=== PATIENT | male | born 1965 | race Caucasian/White ===

== ENCOUNTER 2018-02-09 22:21 | Inpatient (IN) | payer OTHER ==
--- NOTE | 2018-02-09 22:28 | EDPHY ---
H & P Time Seen by Provider: 02/09/18 22:28 HPI/ROS: HPI CHIEF COMPLAINT: Right foot pain, swelling HISTORY OF PRESENT ILLNESS: Patient is a 52-year-old male, presents emergency room with right foot pain and swelling and redness. Additionally has had fever since Wednesday. He states T-max a 103 degrees. Patient states that he was in [place] in noticed some swelling and pain to his right foot and right ankle. Over the weekend he had a fever. The pain has gotten worse and swelling gotten worse and noticed redness he flew back from [place] and came to our emergency room. Upon arrival to the emergency room is noted that his right leg is significantly swollen, erythematous, he has diffuse swelling from his foot ankle and lower leg. On the bottom of his right foot there is a deep skin cut as well as a puncture wound with a hold that tracks rather deep. Additionally the right lateral foot is black, necrotic, and and admits high foul smell. When I press on it he does have significant pain there is no crepitus. I cannot extruded hernesto pus. Past Medical History: Patient states he has a history of neuropathy from"tight shoes" Past Surgical History: History right foot surgery but no hardware Social History: Lives locally, denies drugs alcohol tobacco. Family History: Noncontributory ROS REVIEW OF SYSTEMS: A comprehensive 10 point review of systems is otherwise negative aside from elements mentioned in the history of present illness. Exam Constitutional triage nursing summary reviewed, vital signs reviewed, awake/ alert. Eyes normal conjunctivae and sclera, EOMI, PERRLA. HENT normal inspection, atraumatic, moist mucus membranes, no epistaxis, neck supple/ no meningismus, no raccoon eyes. Respiratory clear to auscultation bilaterally, normal breath sounds, no respiratory distress, no wheezing. Cardiovascular rate normal, regular rhythm, no murmur, no edema, distal pulses normal. Gastrointestinal soft, non-tender, no rebound, no guarding, normal bowel sounds, no distension, no pulsatile mass. Genitourinary no CVA tenderness. Musculoskeletal RLE: right leg is significantly swollen, erythematous, he has diffuse swelling from his foot ankle and lower leg. no midline vertebral tenderness, full range of motion, no calf swelling, no tenderness of extremities , no meningismus, good pulses, neurovascularly intact. Skin pink, warm, & dry, no rash, skin atraumatic. Neurologic awake, alert and oriented x 3, AAOx3, moves all 4 extremities equally, motor intact, sensory intact, CN II-XII intact, normal cerebellar, normal vision, normal speech. Psychiatric normal mood/affect. Heme/Lymph/Immune no lymphadenopathy. Differential Diagnosis: Includes but is not limited to in a particular order: Soft tissue infection, osteomyelitis, necrotic gangrenous foot, MRSA infection, strep infection, myositis Medical Decision Making: Plan for this patient IV establishment blood cultures , broad-spectrum antibiotics IV vancomycin IV Zosyn, x-ray right foot, check lactic acid, patient need to be admitted to the hospital. Will most likely need to consult surgery. Re-evaluation: X-ray reviewed of the right foot. Soft tissue swelling noted. No gas. Patient's blood work is reviewed elevated white blood cell count, elevated CRP. 2354: Reviewed x-ray blood work. I consult the hospitalist service for admission for a right significantly infected foot. Wound cultures been sent. Patient has been given broad-spectrum antibiotics IV vancomycin IV Zosyn. IV fluids. Patient is noted to not be hypotensive. He is afebrile here. He is hemodynamically stable. Additionally I consult Podiatry for evaluation of this foot. 1201AM: Spoke with Faye Dejesus, podiatry. Will plan on seeing the patient. Make NPO tonight. Plan for washout tomorrow morning. 1209AM: Spoke with Dr. Yan, will see and consult on patient. Source: Patient Constitutional: Initial Vital Signs Temperature (C) 37.7 C 02/09/18 22:44 Heart Rate 75 02/09/18 22:44 Respiratory Rate 18 02/09/18 22:44 Blood Pressure 112/59 L 02/09/18 22:44 O2 Sat (%) 91 L 02/09/18 22:44 O2 Delivery Mode Room Air Allergies/Adverse Reactions: No Known Allergies Allergy (Unverified 02/09/18 22:43) Home Medications: Medication Instructions Recorded Calcium Carb W/Vit D [Calcium Carb 500 mg PO DAILY 02/10/18 W/Vit D 500/200 (*)] Cyanocobalamin [Vitamin B12 (*)] 1,000 mcg PO DAILY 02/10/18 [place]-3 Fatty Acids [Fish Oil 1000 2,000 mg PO DAILY 02/10/18 mg (*)] Vitamin B Complex [Vitamin B 1 each PO DAILY 02/10/18 Complex (OTC)] Medical Decision Making - Data Points Laboratory Results: Laboratory Results 02/09/18 22:52 02/09/18 22:52 Microbiology Results: MICROBIOLOGY 02/09/18 22:30 Foot - Swab Gram Stain - Final 02/09/18 22:30 Foot - Swab Wound Culture - Preliminary Staphylococcus Aureus Strep Agalactiae Group B 02/09/18 23:18 Blood Blood Culture - Preliminary 02/09/18 22:51 Blood Blood Culture - Preliminary Medications Given: Acetaminophen (Tylenol) 650 mg PO Q4HRS PRN PRN Reason: Pain, Mild/Fever, Can Take PO Stop: 08/09/18 00:14 Last Admin: 02/11/18 18:22 Dose: 650 mg Calcium/Vitamin D (Calcium Carb W/Vit D) 500 mg PO DAILY JESUS Stop: 08/10/18 08:59 Last Admin: 02/11/18 09:29 Dose: 500 mg Sodium Chloride (Ns) 1,000 mls @ 100 mls/hr IV CONT JESUS Stop: 08/09/18 00:14 Last Admin: 02/11/18 19:43 Dose: 1,000 mls Piperacillin/Tazobactam/Dextrose (Zosyn 3.375 Gm (Premix)) 50 mls @ 100 mls/hr IV Q6HRS JESUS PRN Reason: Protocol Stop: 03/12/18 05:59 Last Admin: 02/12/18 00:05 Dose: 50 mls Doxycycline Hyclate 100 mg/ (Sodium Chloride) 260 mls @ 260 mls/hr IV Q12HRS JESUS PRN Reason: Protocol Stop: 03/12/18 10:29 Last Admin: 02/11/18 21:21 Dose: 260 mls Clindamycin Phosphate/Dextrose (Cleocin 600 Mg (Premix)) 50 mls @ 100 mls/hr IV Q8HRS JESUS PRN Reason: Protocol Stop: 03/13/18 14:59 Last Admin: 02/11/18 22:34 Dose: 50 mls Lorazepam (Ativan) 0.5 - 1 mg PO Q8HRS PRN PRN Reason: Anxiety, Able to Take PO Stop: 08/09/18 00:14 Last Admin: 02/11/18 22:29 Dose: 0.5 mg [id number] Ethyl Esters (Fish Oil) 2,000 mg PO DAILY JESUS Stop: 08/10/18 08:59 Last Admin: 02/11/18 09:29 Dose: 2,000 mg Senna/Docusate Sodium (Senokot-S) 1 - 2 tab PO BID JESUS PRN Reason: Protocol Stop: 08/10/18 20:59 Last Admin: 02/11/18 21:21 Dose: 2 tab Vitamin B Complex (Vitamin B12) 1,000 mcg PO DAILY JESUS Stop: 08/10/18 08:59 Last Admin: 02/11/18 09:49 Dose: Not Given Vitamin B Complex (Vitamin B Complex) 1 ea PO DAILY JESUS Stop: 08/10/18 08:59 Last Admin: 02/11/18 09:29 Dose: 1 ea Discontinued Medications Acetaminophen (Tylenol) 650 mg PO ONCE ONE Stop: 02/10/18 17:31 Last Admin: 02/10/18 17:30 Dose: Not Given Bupivacaine HCl (Sensorcaine 0.25% Sdv) Confirm Administered Dose 30 ml .ROUTE .STK-MED ONE Stop: 02/10/18 17:01 Last Admin: 02/10/18 19:37 Dose: 20 ml Cefazolin Sodium (Ancef Syringe) Confirm Administered Dose 1 gm .ROUTE .STK-MED ONE Stop: 02/10/18 17:01 Last Admin: 02/10/18 19:38 Dose: 1 gm Cefazolin Sodium (Ancef Syringe) Confirm Administered Dose 1 gm .ROUTE .STK-MED ONE Stop: 02/10/18 19:08 Last Admin: 02/10/18 19:38 Dose: Not Given Sodium Chloride (Ns) 1,000 mls @ 0 mls/hr IV EDNOW ONE; Wide Open PRN Reason: Protocol Stop: 02/09/18 22:50 Last Admin: 02/09/18 23:17 Dose: 1,000 mls Vancomycin/Sodium Chloride (Vancomycin 1 Gm (Premix)) 250 mls @ 250 mls/hr IV EDNOW ONE PRN Reason: Protocol Stop: 02/09/18 23:49 Last Admin: 02/10/18 00:22 Dose: 250 mls Piperacillin/Tazobactam/Dextrose (Zosyn (Premix)) 100 mls @ 200 mls/hr IV EDNOW ONE PRN Reason: Protocol Stop: 02/09/18 23:19 Last Admin: 02/09/18 23:46 Dose: 100 mls Vancomycin HCl 1.5 gm/ (Dextrose) 250 mls @ 166.667 mls/hr IV Q12H JESUS Stop: 03/12/18 01:29 Last Admin: 02/10/18 08:48 Dose: Not Given Sodium Chloride (Ns) 1,000 mls @ 0 mls/hr IV ONCE ONE PRN Reason: Wide Open Stop: 02/10/18 22:23 Last Admin: 02/10/18 22:36 Dose: 1,000 mls Lidocaine HCl (Lidocaine Hcl 2%) Confirm Administered Dose 100 mg .ROUTE .STK- MED ONE Stop: 02/10/18 17:01 Last Admin: 02/10/18 19:38 Dose: Not Given Point of Care Test Results: Blood Gas/Lactic Acid-Arterial 02/09/18 23:02 POC Blood Source VENOUS Blood Gas/Lactic Acid-Venous 02/09/18 23:02 POC VBG pH 7.46 H (7.31-7.42) POC VBG pCO2 34 mmHg L mmHg (40-44) POC VBG pO2 28 mmHg L mmHg (35-40) POC VBG HCO3 25 mEq/L mEq/L (22-26) POC VBG Total CO2 26 mEq/L mEq/L (21-27) POC VBG Base Excess 1.0 mEq/L mEq/L (-2.5-2.5) POC Mix VBG O2 Sat 54 % L % (65-75) POC Lactic Acid Mihir 0.9 mmol/L mmol/L (0.7-2.1) Departure - Dep[facility]ure Dis[facility] Clinical Impression: Right foot infection Condition: Fair
[2018-02-09] MEDS ORDERED: NS 1,000 ML IV ONE (22:49)
[2018-02-09] MEDS ORDERED: VANCOMYCIN HCL/NORMAL SALINE 250 ML IV ONE (22:50)
[2018-02-09] MEDS ORDERED: PIPERACILLIN/TAZO 4.5 GM/DEX 100 ML IV ONE (22:50)
[2018-02-09 23:06] LABS: PLATELET COUNT 175 10^3/uL (150-400)
[2018-02-09 23:16] LABS: INR 1.13 (0.83-1.16); PROTIME(PATIENT) 14.7 SEC (12.0-15.0)
[2018-02-10] MEDS ORDERED: HYDROCODONE/APAP 5/325 TAB PO PRN (00:15)
[2018-02-10] MEDS ORDERED: LORazepam 0.5 MG TAB PO PRN (00:15)
[2018-02-10] MEDS ORDERED: ONDANSETRON 4 MG/2 ML VIAL IVP PRN (00:15)
[2018-02-10] MEDS ORDERED: VANCOMYCIN 1.5 GM in D5W 250 ML IV SCH ×2 (01:30→12:00)
[2018-02-10] MEDS: NS 1,000 ML IV SCH (01:34)
--- NOTE | 2018-02-10 03:26 | GHP ---
[f rep st] HISTORY AND PHYSICAL DATE OF ADMISSION: 02/09/2018 SOURCE OF DATA: Patient provides history, appears reliable. EMR was reviewed and case discussed with ED provider. CHIEF COMPLAINT: Right foot pain and swelling. HISTORY OF PRESENT ILLNESS: This is a very pleasant 52-year-old gentleman with a past medical history significant for peripheral neuropathy, bilateral feet, who presents to the emergency department today with complaints of several-day history of worsening right foot pain and swelling. The patient reports he has had a history of a cut approximately a month ago, which subsequently healed. He had been in [place] for work and walking around quite extensively. He noted that he had a small cut on his foot and developed a little bit of swelling. He continued to have worsening foot pain and swelling. On his way back home, he did not notice any drainage, but did note some increased pain and swelling, and odor coming from his foot. He also noted that his lateral aspect of his right foot appeared to be black. Patient reports that he developed some subjective fevers, chills, and sweats. He measured a temperature at home of 103 Fahrenheit. He has had this ongoing since Wednesday, now morning, and so presented to the emergency department when continued to feel poorly. The patient has had increasing swelling in his lower leg as well, but no increased pain. The patient without any history of diabetes or hyperglycemia. REVIEW OF SYSTEMS: GENERAL: Positive for fevers, chills, and sweats. SKIN: Swelling, pain, and erythema noted to the right foot. ENT: Patient denies any congestion or sore throat. E?YES: No acute changes in vision or ocular pain. CV: No chest pain or palpitations. RESPIRATORY: No shortness of breath, but reports occasional dry cough. GI: No nausea, vomiting, abdominal pain, or diarrhea. : No dysuria or hematuria. MUSCULOSKELETAL: Patient without any current complaints of pain, joint, or myalgias. NEUROLOGIC: Bilateral foot neuropathy. Otherwise, no headache, numbness, tingling, or focal deficits. PSYCH: Patient denies any anxiety or depression. Remainder of systems negative except as noted above. ALLERGIES: No known drug allergies. HOME MEDICATIONS: None. PAST MEDICAL HISTORY: Bilateral neuropathy in his feet. PAST SURGICAL HISTORY: Patient had a right foot surgery in attempt to alleviate the neuropathy without success. FAMILY HISTORY: Father with hypertension. SOCIAL HISTORY: Patient is , lives with his and family. No tobacco , drugs, or alcohol. CODE STATUS: Full. PHYSICAL EXAMINATION: VITAL SIGNS: Upon arrival to the emergency department, blood pressure 112/59, heart rate is 75, respiratory rate 18, O2 saturation 91% on room air, with temperature of 37.7. Current vital signs 107/63 blood pressure , heart rate 82, respiratory rate 12, O2 saturation is 95% on room air, with temperature 37.2. GENERAL: No acute distress. Very pleasant adult gentleman, who is lying comfortably on bed asleep. He awakens easily to name. HEAD: Normocephalic, atraumatic. EYES: Extraocular muscles are intact. Pupils are equal, round, reactive to light bilaterally and symmetric. No scleral icterus or conjunctival injection. ENT: Mucous membranes appear moist. No oropharyngeal erythema or exudates. Dentition intact. NECK: Supple. Trachea midline. CV: Regular rate and rhythm. No murmurs, rubs, or gallops appreciated. RESPIRATORY: Unlabored breathing. Lungs are clear to auscultation bilaterally. No wheezes, rales, or rhonchi appreciated. ABDOMEN: Positive bowel sounds. Soft, nontender to palpation. No rebound, guarding, or masses appreciated. : No suprapubic tenderness to palpation. No Tuttle catheter in place. EXTREMITIES: Patient with 2+ pedal pulses on the left. Limited pulse evaluation on the right secondary to 2 to 3+ pitting edema. Right foot also with an ulceration and callus formation over the distal metatarsal head. Extensive swelling and erythema without tenderness. Area of necrosis along the lateral aspect of the right foot. The patient's right distal lower leg also with 1+ pitting edema and blanchable erythema without tenderness. No induration or fluctuance is noted. Also, on the plantar surface of patient's right lateral foot over the 5th metatarsal is a fissured crack without any surrounding erythema. NEUROLOGIC: Cranial nerves grossly nonfocal. No facial drooping. Patient with absent sensation to bilateral feet up to the distal lower extremities. PSYCH: Thought process, content, and questions are all appropriate. Patient is awake, alert, and oriented x3. LABORATORY STUDIES: 1. WBC 20.15, H and H are 13.2 and 36.7, MCV of 91.5, platelet count is 175, and neutrophil percent is 86.5% without any bandemia. ESR is 24. PT is 14.7, INR 1.13, PTT is 38.7. 2. VBG: PH is 7.46, pCO2 is 34, pO2 is 28, bicarb 25, base excess 1, lactic acid 1.1, O2 saturation 54%. 3. Sodium is 138, potassium 3.7, chloride 102, CO2 is 24, anion gap 12, BUN 21 , creatinine is 1.1, GFR greater than 60, glucose is 109. Lactic acid 0.9. Calcium is 8.9. CRP is 186. Blood cultures x2 pending. Wound culture also pending. 4. Foot x-ray: Image and report were reviewed myself, showing soft tissue foot swelling on the lateral forefoot with soft tissue lucency representing an ulceration. No direct evidence of osteomyelitis. Well-corticated bone flake at the tip of the lateral malleolus suggests a remote avulsion injury. ASSESSMENT AND PLAN: Pleasant 52-year-old gentleman, who presents with complaints of right foot swelling, erythema. 1. Right foot wound infection and necrosis. Patient with history of peripheral neuropathy, likely contributing. He has a fissured lesion and ulceration on the plantar aspect at the 5th metatarsal head. The patient has been started on vancomycin and Zosyn. He does not meet sepsis criteria at this time. Job Site Supervisor, Dr. Manju Celaya and Infectious Disease were consulted for further assistance with management. MRI has been ordered for the morning for further evaluation for osteomyelitis. The patient has been made n.p.o. in anticipation that he will require washout and debridement in the morning. 2. Right lower extremity edema secondary to infectious process. Patient without any calf tenderness. He does have a recent history of short travel, low suspicion for deep venous thrombosis. Holding anticoagulation preoperatively. Elevate extremity. 3. Leukocytosis secondary to infectious process, as noted above. Patient has been afebrile since arrival to the emergency department. He reports a history of fevers. Lactic acid is within normal limits. Patient receiving IV fluid supplementation. No bolus. 4. Anemia. Chronicity at this time is unknown. Patient without any evidence of active bleeding. Follow up with PCP. 5. Fluid, electrolyte, nutrition. IV fluids overnight for gentle hydration while patient is n.p.o. Electrolyte monitoring and replacement if needed. 6. Prophylaxis. SCD to the left leg. Holding anticoagulation preoperatively. 7. Cor status is full. DISPOSITION: Patient has been admitted to inpatient status on the medical floor in ICU overflow at this time. Anticipate greater than 2-midnight stay, given extensive nature of patient's infection and need for intervention. /[id number]/MODL MTDD
[2018-02-10] MEDS: PIPERACILLIN/TAZO 3.375 GM/DEX 50 ML IV SCH ×4 (06:07→23:33)
[2018-02-10 06:26] LABS: PLATELET COUNT 160 10^3/uL (150-400)
--- NOTE | 2018-02-10 08:27 | GCON ---
[f rep st] CONSULTATION DATE OF CONSULTATION: 02/10/2018 CHIEF COMPLAINT: Right foot pain and swelling. HISTORY OF PRESENT ILLNESS: Podiatry was consulted on this 52-year-old male with a past medical history of peripheral neuropathy without diabetes. He relates that a few months ago, he punctured his foot on coral, and it took a while to resolve but eventually did. On Wednesday, he started feeling ill with fever, chills, and hot sweats. He presented yesterday to the emergency department and was found to have a right foot infection. X-rays done yesterday were negative for osteomyelitis, however, did demonstrate extensive lateral foot swelling. He does also relate that 6 months ago he sprained his ankle and started noticing foot swelling in addition to the ankle swelling last week. The last few days he was in [place], wearing tennis shoes and walking a lot. He thought initially that it was just the shoes causing pain and noticed a cut on the bottom of his foot that he thought was the trigger of the pain. His peripheral neuropathy has been ongoing for 15 years. He relates he thinks this is from extensive cycling. He did have a tarsal tunnel release and a nerve release on the dorsal aspect of his foot approximately 10 years ago. He relates that this was not helpful. He had EMG and nerve conduction studies done approximately 10 years ago as well which were abnormal, but he does not remember the exact results. He does not take any medications for the neuropathy. PAST MEDICAL HISTORY: Neuropathy, bilateral feet. History of tarsal tunnel release and dorsal foot nerve release. HOME MEDICATIONS: None. ALLERGIES: No known drug allergies. FAMILY HISTORY: Father with hypertension. SOCIAL HISTORY: The patient is , lives with his and family. He denies any tobacco, drugs, or alcohol use. REVIEW OF SYSTEMS: Fever and chills and hot sweats. The remainder of the review of systems was negative. He denies any nausea, vomiting, shortness of breath, chest pain, or abdominal pain. VITALS: Blood pressure 107/63, heart rate 82, respiratory rate 12, oxygen saturation 95% on room air, temperature 37.2 degrees Celsius. MICROBIOLOGY: Blood culture is pending. LABORATORIES: White blood cell count 17.45 (it was 20.15 when admitted). Hemoglobin 12.5, hematocrit 34.3, platelets 160. ESR was 24 upon admission. C- reactive protein 186.3. Sodium 139, potassium 3.7, chloride 106, carbon dioxide 23, BUN 15, creatinine 0.9, and glucose 103. IMAGING: X-ray demonstrates "lateral forefoot soft tissue edema. Soft tissue lucency could represent focal ulceration, correlate with direct examination. No direct evidence of osteomyelitis." LOWER EXTREMITY PHYSICAL EXAMINATION: Right foot with significant soft tissue swelling over the 5th metatarsal head and fluctuant area consistent with an abscess with hyperkeratotic ulcer under the 5th metatarsal head. There is surrounding erythema and cellulitis with extensive swelling. The plantar aspect of the 5th metatarsal head has a fissure proximal to the 5th metatarsal head ulcer, which does not appear to be contributing to the wound. He has 2+ pedal pulses. He does not have any sensation distal to the ankle with light touch. ASSESSMENT AND PLAN: Right foot infection with necrosis and peripheral neuropathy. Currently on Zosyn and Vancomycin. We discussed surgical intervention and the need for incision and drainage. I would like him to get the MRI done prior for surgical planning. We will plan for incision and drainage later this afternoon/evening. Spoke with the OR and they were able to schedule the patient for 5 o'clock this evening. Infectious Disease was consulted on the patient. Discussed work up of the peripheral neuropathy as an outpatient to determine etiology and treatment options. /[id number]/MODL MTDJessica
--- NOTE | 2018-02-10 10:33 | PDMN ---
Medical Necessity Medical necessity: Pt meets IP criteria per MD & MCG [id number] Foot: Surgical Wound Care with R foot wound infection, necrosis, RLE edema & leukocytosis; requiring MRI to further workup for osteomyelitis, Surgical intervention, IVFs, IV abx & ID/Wound Care consults; hx peripheral neuropathy
--- NOTE | 2018-02-10 11:03 | GCON ---
[f rep st] CONSULTATION INFECTIOUS DISEASE CONSULTATION REFERRING PHYSICIAN: Manju Celaya DPM REASON FOR CONSULTATION: Right foot infection. HISTORY OF PRESENT ILLNESS: This is a 52-year-old healthy male with underlying peripheral neuropathy of his bilateral feet who was in his usual state of health until February 06 when he developed flu-like illness. Patient subsequently felt better; therefore, traveled to [place] for a meeting where he developed a crack in the bottom of his foot underlying his 5th metatarsal. He reported some pain with this and noted some mild foot swelling over this duration. The patient had chills return on the and while he was traveling and returned yesterday and presented to the emergency room for further evaluation. Interestingly 3 months ago, patient injured his foot while in [facility] on some coral. He did not take antibiotics and reports that this healed. Over the last 24 hours prior to admission, patient noticed marked increase in swelling, a foul smell coming from his foot, and subsequently, they noticed the black discoloration, which prompted the ER visit. In addition, he sprained his ankle 6 months ago and has had some discomfort associated with the ankle with that as well. Denies any other injuries. He has some mild persistent pain of the foot and describes continued progression of the appearance of the swelling and the redness of the foot. PAST MEDICAL/SURGICAL HISTORY: Neuropathy bilateral feet. Patient had a nerve release on the right foot with minimal success. MEDICATIONS: None. ALLERGIES: No known drug allergies. FAMILY HISTORY: Positive for high blood. SOCIAL HISTORY: He is over 20 years. He has children who are teenagers. No tobacco. Rare alcohol. No drugs. He is originally from [place]. He works for a [employer] and travels a lot for that, and has been to the [place] twice this year. REVIEW OF SYSTEMS: A complete 10-point review of systems was performed and is negative, except as mentioned in the HPI. Specifically, patient denies pulmonary or GI symptoms. Further patient has not received antibiotics for many years. PHYSICAL EXAMINATION: VITAL SIGNS: BP 112/59, HR 75, RR 16, T 37.7, and saturation 91% on room air. Weight is 100 kg. GENERAL: This is a pleasant male who appears younger than his stated age. Breathing easy. HEENT: No conjunctival injection. Oropharynx: Moist mucous membranes and good dentition. CARDIOVASCULAR: Regular rate and rhythm with an S3. CHEST: Clear to auscultation bilaterally. ABDOMEN: Soft, nontender. EXTREMITIES: His right lower extremity revealed significant edema of his right foot, particularly focused over the right metatarsal and along the base of all of his toes is the distribution of erythema. Further, patient has a hemorrhagic necrotic appearing bulla on his right lateral foot. He has 2+ pedal pulses. There is faint erythema tracking up to his mid schwarz, as well as swelling, warmth , lack of tenderness to palpation. No crepitus was noted. There was some drainage over the 5th metatarsal on the sole of his foot. Range of motion of the toes seemed roughly intact, as well as his ankle. SKIN: No rashes other than noted on extremity exam. NEUROLOGIC: He is alert oriented x4. Moving all 4 extremities equally. I did not do a sensory exam. LABORATORY/IMAGING: White count 20, on admission, 17 today, hematocrit 34, platelets 160, 83% neutrophils. Gram stain from the wound showed 3+ gram- negative coccobacilli, 2+ gram-positive cocci, 1+ gram-negative rods with rare gram-positive rods. Blood cultures are pending and no growth to date. Creatinine 0.9. CRP 186. MRI is pending. Plain film imaging was unremarkable for anything other than swelling. ASSESSMENT/PLAN: 52-year-old male with right foot cellulitis with a component of necrosis. Suspect streptococcus or staphylococcus as most likely pathogen. Fairly rapidly progressive, although patient with initial flu-like illness 4 days ago, and due to lack of sensation in his feet, may have not recognized the presence of infection. Interestingly, patient does have some remote water exposure, raising the possibility of more unusual pathogens causing cellulitis. Specifically, Vibrio, Edwardsiella, Aeromonas, Erysipelothrix. I think his risk of methicillin-resistant Staphylococcus aureus is low due to minimal antibiotic exposure. Would discontinue vancomycin and replace with doxycycline , which would add Aeromonas and Vibrio coverage, but also continue coverage for methicillin-resistant Staphylococcus aureus. Continue standard dose Zosyn IV for now. Patient to have MRI today and to have surgical debridement this afternoon by Dr. Manju Celaya, which I am in agreement with and will get additional microbiologic data and anatomic data by both of those modalities. I will continue to follow blood cultures. Thank you for this consultation. We will continue to follow on a daily basis. /[id number]/MODL MTDD
[2018-02-10] MEDS: DOXYCYCLINE INJ 100 MG in NS 250 ML IV SCH ×2 (11:27→21:45)
[2018-02-10] MEDS ORDERED: GADOBUTROL 10 ML VIAL IVP ONE (14:29)
--- NOTE | 2018-02-10 15:59 | ASMTCASEMG ---
Living Arrangements What is your living Answers: With Spouse arrangement? Who do you live with? Type Of Residence What kind of residence do Answers: House you live in? Discharge Plan Comments Coordination Status Comments Notes: Patient is a 52yo male who was admitted for right foot wound infection and necrosis, right lower extremity edema secondary to infection, leukocytosis, and anemia. No therapies have been ordered at this time. D/C plan TBD. CM will follow. Date Signed: 02/10/2018 03:58 PM Electronically Signed By:Ailin Bettencourt LCSW
[2018-02-10] MEDS ORDERED: ceFAZolin 1 GM/5 ML SYR ONE ×2 (17:00→19:07)
[2018-02-10] MEDS ORDERED: BUPIVACAINE 0.25% 30 ML SDV ONE (17:00)
[2018-02-10] MEDS ORDERED: LIDOCAINE 2% 100 MG/5 ML SYR ONE (17:00)
[2018-02-10] MEDS ORDERED: ACETAMINOPHEN 325 MG TAB PO ONE (17:30)
--- NOTE | 2018-02-10 17:42 | PDANEPAE ---
ANE Past Medical History - Pulmonary History Hx Oxygen in Use at Home: No Hx Sleep Apnea: No Sleep Apnea Screening Result - Last Documented: Positive - Endocrine History Hx Diabetes: No - Chronic Pain History Chronic Pain: No ANE Review of Systems Review of Systems: ANE Patient History - Allergies Allergies/Adverse Reactions: No Known Allergies Allergy (Unverified 02/09/18 22:43) - Home Medications Home Medications: Calcium Carb W/Vit D [Calcium Carb W/Vit D 500/200 (*)] 500 mg PO DAILY [Last Taken Unknown] Cyanocobalamin [Vitamin B12 (*)] 1,000 mcg PO DAILY 02/10/18 [Last Taken Unknown ] [place]-3 Fatty Acids [Fish Oil 1000 mg (*)] 2,000 mg PO DAILY 02/10/18 [Last Taken Unknown] Vitamin B Complex [Vitamin B Complex (OTC)] 1 each PO DAILY 02/10/18 [Last Taken Unknown] - NPO status NPO Since - Liquids (Date): 02/10/18 NPO Since - Liquids (Time): 09:00 NPO Since - Solids (Date): 02/10/18 NPO Since - Solids (Time): 09:00 - Smoking Hx Smoking Status: Never smoked ANE Labs/Vital Signs - Labs Result Diagrams: 02/10/18 06:00 02/10/18 06:00 - Vital Signs Blood Pressure: 102/59 Heart Rate: 98 Respiratory Rate: 16 O2 Sat (%): 93 Height: 187.96 cm Weight: 100 kg ANE Physical Exam - Airway Mallampati Score: Class 1 - ASA Status ASA Status: II ANE Anesthesia Plan Anesthesia Plan: GA w LMA, MAC
[2018-02-10] MEDS ORDERED: fentaNYL 100 MCG/2 ML INJ ONE (17:50)
[2018-02-10] MEDS ORDERED: MIDAZOLAM 2 MG/2 ML VIAL ONE (17:50)
[2018-02-10] MEDS ORDERED: PROPOFOL 200 MG/20 ML VIAL ONE (18:22)
[2018-02-10] MEDS ORDERED: METOCLOPRAMIDE 10 MG/2 ML VIAL ONE (18:22)
[2018-02-10] MEDS ORDERED: LIDOCAINE 2% JELLY 5 ML TUBE ONE (18:22)
[2018-02-10] MEDS ORDERED: ONDANSETRON 4 MG/2 ML VIAL ONE (18:23)
[2018-02-10] MEDS ORDERED: PHENYLEPHRINE HCL 100 MCG/ML SYR ONE (18:32)
[2018-02-10] MEDS ORDERED: KETOROLAC 30 MG/1 ML SDV ONE (19:21)
[2018-02-10] MEDS ORDERED: fentaNYL 100 MCG/2 ML INJ IVP PRN (19:39)
[2018-02-10] MEDS ORDERED: NALOXONE HCL 0.4 MG/ML INJ IVP PRN (19:39)
[2018-02-10] MEDS ORDERED: PHENYLEPHRINE HCL 100 MCG/ML SYR IVP PRN (19:39)
[2018-02-10] MEDS ORDERED: NS 500 ML IV PRN (19:39)
--- NOTE | 2018-02-10 19:40 | HOSPPROG ---
Hospitalist Progress Note Assessment/Plan: Assessment: 52 yo M p/w acute ft abscess and cellulitis in the setting of neuropathy Plan: 1. Ft abscess and cellulitis. Acute, new problem this provider, further workup indicated. Located on the plantar surface of the right foot with skin break, traveling proximally and potentially resulting in necrotizing fasciitis per my discussion with Dr. Ludin Benítez, based on MRI results -a personally interpreted the patient's foot x-ray there is possibly a soft tissue lucency in the right, the patient does recently have a history of stepping on coral, it will be determined in the OR whether he has an imbedded foreign object -Dr. Benítez has relayed this information to Dr. Celaya who is taking the patient to the operating room tonight -cultures will be sent from the area, will guide antibiotic therapy -infectious Disease consultation appreciated, currently on Vanco and Zosyn, continue perioperatively -no evidence of overt osteomyelitis -will require localized wound care and physical therapy -pain control 2. Tendinopathy. MRI demonstrating partial tear of the right peroneal tendon -will recommend ongoing outpatient physical therapy as well as orthopedic follow -up 3. Neuropathy. Chronic, unclear etiology, will check hemoglobin A1c 4. Systemic inflammatory response syndrome. Secondary to underlying infection, patient does not overtly meet sepsis criteria, continue monitor white blood cell count and fever curve Diet. Regular Prophylaxis. High risk patient, avoid SCDs on right lower extremity, hold on pharmacologic prophylaxis given surgery Code. Full Disposition. Anticipated discharge uncertain this time, anticipated length stay will be based on IV antibiotic duration as well as wound reassessment Subjective: Right foot pain Objective: Vital Signs Temp Pulse Resp BP Pulse Ox 38.1 C 98 16 102/59 L 93 02/10/18 18:31 02/10/18 18:31 02/10/18 18:31 02/10/18 18:31 02/10/18 18:31 Laboratory Results 02/10/18 06:00 02/10/18 06:00 02/09/18 02/10/18 02/11/18 05:59 05:59 05:59 Intake Total 1875 Balance 1875 PT 14.7 SEC (12.0-15.0) 02/09/18 22:52 INR 1.13 (0.83-1.16) 02/09/18 22:52 - Physical Exam Constitutional: no apparent distress, appears nourished, not in pain, No uncomfortable Cardiovascular: regular rate and rhythym, no murmur, rub, or gallop, edema (1+ right lower extremity) Respiratory: no respiratory distress, no rales or rhonchi, clear to auscultation Gastrointestinal: normoactive bowel sounds, soft, non-tender abdomen, no palpable masses Skin: other (Ruptured blood blister over the lateral aspect of the right foot, with underlying dark in blood, bloody granulation tissue, tense ecchymoses surrounding area with tenderness to palpation, confluent blanching erythema extending proximally, longitudinal skin break along the plantar aspect of the foot) Musculoskeletal: other (Full range of motion of right ankle without any overt pain, full range of motion of his toes without particular pain) Neurologic: AAOx3, No sensation intact bilaterally (Paresthesias along the plantar aspect of the right foot, intact sensation proximal to the ankle) Psychiatric: interacting appropriately, not anxious, not encephalopathic, thought process linear ICD10 Worksheet Patient Problems: Problems Problem Status Onset Right foot infection Acute
--- NOTE | 2018-02-10 19:41 | POSTOPPROG ---
Post Op Note Date of Operation: 02/10/18 Surgeon: Manju Celaya Anesthesiologist: Dr. Chiquita Ortega Anesthesia: LMA Pre-op Diagnosis: Right foot infection with necrosis Post-op Diagnosis: Right foot infection with necrosis Procedure: Right foot incision and drainage with extensive debridement Inf/Abcess present in the surg proc area at time of surgery?: Yes Depth: Deep Incisional (Fascial) EBL: Minimal Drains: Other (Iodoform packing gauze.)
--- NOTE | 2018-02-10 19:41 | POSTANESTH ---
Post Anesthetic Evaluation Cardiovascular Status: Similar to Pre-Op Cond Respiratory Status: Normal, Stable Level of Consciousness/Mental Status: Can Participate in Eval Pain Control: Adequate, Prn Tx Ordered Nausea/Vomiting Control: Adequate, Prn Tx Ordered Complications Possibly Related to Anesthesia: None Noted
--- NOTE | 2018-02-10 20:21 | GOP ---
[f rep st] OPERATIVE REPORT DATE OF OPERATION: SURGEON: Manju Celaya DPM ANESTHESIA: LMA. ANESTHESIOLOGIST: Mart Ortega MD PREOPERATIVE DIAGNOSIS: Right foot infection with necrosis over 5th metatarsal head. POSTOPERATIVE DIAGNOSIS: Right foot infection with necrosis over 5th metatarsal head. PROCEDURE PERFORMED: Right foot incision and drainage with extensive soft tissue debridement over the 5th metatarsal and 5th toe. FINDINGS: Tissue necrosis about the 5th metatarsal and plantar forefoot under the 5th and 4th metatarsals. SPECIMENS: Wound cultures and tissue were sent for micro. ESTIMATED BLOOD LOSS: Minimal. DESCRIPTION OF PROCEDURE: Under mild sedation, the patient was brought into the operating room, placed on the operating table in supine position. LMA anesthesia was then performed by Dr. Ortega. Local anesthesia was obtained using 20 mL of 0.25% Marcaine plain. The foot and leg were then scrubbed, prepped, and draped in the usual aseptic manner. A sterile pneumatic ankle tourniquet was placed about the ankle. No exsanguination was performed. After mild elevation of the foot, the tourniquet was inflated. An incision was then made over the 5th metatarsal head at the area of necrosis and extended plantarly underneath the 4th and 5th metatarsal heads. The incision was used to encompass the plantar ulcer and all of the black necrotic areas were removed with sharp and blunt dissection. This was carried down to the level of the 5th metatarsal capsule tendons and periosteum. Extensive debridement was performed by removing all of the brown necrotic tissue. This did leave the 5th metatarsal exposed with the overlying capsule and tendons intact. Extensive irrigation was performed initially with bulb syringe and then pulse lavage was performed. There was tunneling noted plantarly, as well as distally underneath the 4th and 5th intermetatarsal space. Pulse lavage was then performed using a 3 L bag of fluid with Ancef in the irrigation. The instrumentation was changed and so were gloves at this point. The wound was packed with iodoform packing gauze. The open wound measured approximately 6 cm from the top of the foot around to the bottom of the foot and approximately 5.5 cm dorsal aspect of the foot from proximal to distal and 4 cm from the plantar aspect. Iodoform packing gauze, 4 x 4 gauze, ABD pad, Erin, Kerlix, Rush wrap were applied. The tourniquet was deflated at 36 minutes. The patient was then transferred to the recovery room. Patient will be transferred back to ICU. Plan for wound care to see the patient in the morning. I am concerned about the lack of viable soft tissue coverage over the 5th metatarsal. He is at high risk for losing the 5th ray, including the 5th toe and 5th metatarsal. INJECTABLES: Proximal ankle block using 20 mL of 0.25% Marcaine plain. DRAINS: Iodoform packing gauze placed. HEMOSTASIS: Pneumatic ankle tourniquet at 225 mmHg for 36 minutes. /[id number]/MODL MTDD
[2018-02-10] MEDS ORDERED: NS 1,000 ML IV ONE (22:22)
--- NOTE | 2018-02-10 22:30 | CPEKG ---
Heart Rate: 110 RR Interval: 545 QRSD Interval: 90 QT Interval: 340 QTC Interval: 461 QRS [place]: 54 T Wave [place]: 5 EKG Severity - ABNORMAL ECG - EKG Impression: ATRIAL FIBRILLATION, V-RATE 77-144 EKG Impression: VENTRICULAR PREMATURE COMPLEX EKG Impression: BORDERLINE R WAVE PROGRESSION, ANTERIOR LEADS Electronically Signed By: Enrrique Wadsworth 11-Feb-2018 17:14:24
[2018-02-11 05:13] LABS: PLATELET COUNT 164 10^3/uL (150-400)
[2018-02-11] MEDS: PIPERACILLIN/TAZO 3.375 GM/DEX 50 ML IV SCH ×3 (06:41→17:42)
--- NOTE | 2018-02-11 09:04 | PCMIDPN ---
Assessment/Plan: # Severe cellulitis R foot with areas of necrosis s/p debridement 01/10. Initial cultures showing MSSA and group B strep. OR Gram stain showed 2+ GPCs and 2+ gram-negative rods. Still with a significant amount of dusky tissue on the edge of the wound, no hernesto purulence. Erythema on the dorsum of the foot is more lolis and petechial in nature, involving the majority of the dorsum. Intact circulation, erythema on the anterior schwarz is improved. White count has trended down. --with gram-negative rods on the Gram stain and history of coral injury and infection emanating from this site will continue doxycycline (coverage vibrio, Aeromonas) --will leave Zosyn for now due to presence of GNR, will provide coverage of MSSA and GBS --agree with return to OR tomorrow for further debridement and amp of R 5th toe and met due to ongoing appearance of tissue Meds zosyn 3.375gm IV q6 Doxycycline 100mg IV q12h Microbiology 02/09/18 22:51 Blood Cx(2) NGTD 02/09/18 22:30 Foot - Swab Wound Culture : Staphylococcus Aureus Strep Agalactiae Group B 02/10/18 OR cx : 2+ GPCs and 2+ gram-negative rods; Cx pending Subjective: Reviewed surgical findings with Dr. Manju Celaya and infection emanated from puncture wound from Coral injury. Patient has no foot pain due to underlying neuropathy. He expresses concern regarding losing his entire foot. Objective: Vital Signs Temp Pulse Resp BP Pulse Ox 37.8 C 95 22 H 116/74 94 02/11/18 08:00 02/11/18 08:00 02/11/18 08:00 02/11/18 08:00 02/11/18 08:00 Microbiology 02/10/18 19:16 Gram Stain - Final Foot - Tissue 02/10/18 19:15 Gram Stain - Final Foot - Eswab 02/10/18 19:15 Mycobacterial Smear (JAVI) - Final Foot - Eswab Mycobacterial Culture - Final Laboratory Results 02/11/18 05:00 02/11/18 05:00 02/10/18 02/11/18 02/12/18 05:59 05:59 05:59 Intake Total 1875 4140 Output Total 301 300 Balance 1875 3839 -300 ESR 24 MM/HR (0-20) H 02/09/18 22:52 C-Reactive Protein 186.3 mg/L (<10.0) H 02/09/18 22:52 - Physical Exam General Appearance: alert, no apparent distress Respiratory: lungs clear, No accessory muscle use Cardiac/Chest: regular rate, rhythm Extremities: swelling (swelling of R foot significantly improved), erythema ( erythema on anterior schwarz faded), other (dusky tissue on the edge of the wound, no hernesto purulence. Erythema on the dorsum of the foot is more lolis and petechial, very large open wound lateral R foot) Peripheral Pulses: 2+: dorsalis-pedis (R), dorsalis-pedis (L) Skin: warm/dry, No diaphoresis, No pallor, No rash Neuro/Psych: alert, normal mood/affect, oriented x 3 - Time Spent With Patient Time Spent with Patient: greater than 35 minutes Time Spent with Patient: Greater than 35 minutes spent on this patients care, greater than 50% of time spent counseling, educating, and coordinating care regarding the above mentioned plan. ICD10 Worksheet Patient Problems: Problems Problem Status Onset Right foot infection Acute
[2018-02-11] MEDS: VITAMIN B COMPLEX 1 EA CAP/TAB PO SCH (09:29)
[2018-02-11] MEDS: CALCIUM CARB W/VIT D 500 MG TAB PO SCH (09:29)
[2018-02-11] MEDS: OMEGA-3 FATTY ACIDS 1,000 MG CAP PO SCH (09:29)
[2018-02-11] MEDS: DOXYCYCLINE INJ 100 MG in NS 250 ML IV SCH ×2 (09:30→21:21)
[2018-02-11] MEDS: CYANO/VITAMIN B12 1000 MCG TAB PO SCH (09:49)
--- NOTE | 2018-02-11 11:46 | SOAPPROG ---
SOAP Progress Note Assessment/Plan: Assessment:Right foot infection. 1 day s/p incision and drainage Plan:The wound was evaluated with Dr. Yan and Larisa with wound care. Wound edges not as healthy as last night right after debridement. Further necrosis is developing at the skin edges with necrosis forming over the 5th metatarsal. Discussed with patient that he will require further debridement, but I would like to wait for further demarcation. He will require a 5th ray amputation. This was discussed with the patient and his (over the phone). Will keep the patient NPO after midnight for possible amputation tomorrow morning. Patient currently on Doxycycline and Zosyn per ID. 02/11/18 12:01 Subjective: The patient was seen at bedside, 1 day s/p right foot incision and drainage with debridement of necrosis. He states feeling exhausted, but feeling better overall. Right foot elevated on pillows. Dressing clean, dry, and intact Objective: Vital Signs Temp Pulse Resp BP Pulse Ox 37.8 C 95 22 H 116/74 94 02/11/18 08:00 02/11/18 08:00 02/11/18 08:00 02/11/18 08:00 02/11/18 08:00 Microbiology 02/10/18 19:16 Gram Stain - Final Foot - Tissue 02/10/18 19:15 Gram Stain - Final Foot - Eswab 02/10/18 19:15 Mycobacterial Smear (JAVI) - Final Foot - Eswab Mycobacterial Culture - Final Laboratory Results 02/11/18 05:00 02/11/18 05:00 02/10/18 02/11/18 02/12/18 05:59 05:59 05:59 Intake Total 1875 4140 Output Total 301 300 Balance 1875 3839 -300 PT 14.7 SEC (12.0-15.0) 02/09/18 22:52 INR 1.13 (0.83-1.16) 02/09/18 22:52 - Time Spent With Patient Time Spent With Patient: 30 minutes - Pending Discharge Pending Discharge Within 24 Hours: No Pending Discharge Within 48 Hours: No Physical Exam - Physical Exam General Appearance: alert, no apparent distress Peripheral Pulses: 2+: dorsalis-pedis (R) Skin: other (Right foot cellulitis with red/purple discoloration. Open wound over 5th metatarsal with 5th metatarsal visible. Wound approximately 6 cm x 4 cm. Wound edges with worsening necrosis since debridement last night. ) Extremities: normal capillary refill, swelling Neuro/Psych: alert, normal mood/affect ICD10 Worksheet Patient Problems: Problems Problem Status Onset Right foot infection Acute
--- NOTE | 2018-02-11 12:10 | ECHO ---
[email or web address] [address] Main: [phone] Fax: [email or web address] Echocardiogram Name: MARRY MEZA MR#: [id number] Study Date: 02/11/2018 Study Time: 08:02 AM Date of : 1965 Age: 52 year(s) Height: 188 cm (74 in.) Weight: 99.79 kg (220 lb.) BSA: 2.26 m2 Gender: Male Examination: Echo Indication: New onset of atrial fibrillation post surgery, now NSR with ectopy Image Quality: Contrast: Requested by: Elisabeth Zhang BP: 114 mmHg/60 mmHg Heart Rate: Rhythm: Normal sinus rhythm with ectopy Indication: New onset of atrial fibrillation post surgery, now NSR with ectopy Procedure Staff Armored Service Technician: Jamir Ellsworth RDCS Reading Physician: Axel Martin MD Requesting Provider: Conclusions: Normal size left ventricle. No LV hypertrophy. Normal global systolic LV function. EF is 66 %. No regional wall motion abnormality. Normal diastolic LV function. Normal size right ventricle. Normal RV function. The left atrium is normal in size. The right atrium is normal in size. The mitral valve is normal in appearance and function. There is no mitral valve regurgitation. The aortic valve is normal in appearance and function. The aortic valve is tri-leaflet. The tricuspid valve appears normal. Trivial tricuspid valve regurgitation. The pulmonary artery pressure is normal. The pulmonic valve is normal in appearance and function. The aorta is normal. No pericardial effusion. The patient's heart appears to be structurally normal. A cause for the patient's atrial fibrillation is not identified on this study. Measurements: Chambers Valvular Assessment AV/MV Valvular Assessment TV/PV Normal Normal Normal Name Value Range Name Value Range Name Value Range TR Vmax: 2.24 mm/s ( - ) Patient: MARRY MEZA Study Date: 02/11/2018 Page 1 of 2 08:02 AM Ao Isa (MM): 2.9 cm (2.2 cm-3.7 AV Vmax: 1.48 m/s (1 m/s-1.7 TR PGmax: 20 mmHg ( - ) cm) m/s) syst. PAP: 25 mmHg ( - ) IVSd (2D): 0.9 cm (0.6 cm-1.1 AV maxP mmHg ( - ) PV Vmax: 1.15 m/s (0.6 m/s-0.9 cm) LVOT Vmax: 0.99 m/s (0.7 m/s-1.1 m/s) LVDd (2D): 4.6 cm (4.2 cm-5.9 m/s) PV PGmax: 5 mmHg ( - ) cm) MV E Vmax: 1.00 m/s ( - ) LVDs (2D): 3.0 cm (2.1 cm-4 MV A Vmax: 0.78 m/s ( - ) cm) MV E/A: 1.28 ( - ) LVPWd (2D): 1.1 cm (0.6 cm-1 cm) LVEF (2D): 66 (>=54 %) Continued Measurements: Chambers Valvular Assessment AV/MV Valvular Assessment TV/PV Name Value Name Value Name Value LADs Lon.4 cm MV E/E' Septal: 9.90 CVP (est.): 5 mmHg LA Area: 20.3 cm2 MV E/E' Lateral: 10.30 LA Volume: 57 ml LA Volume Index: 25.2 ml/m2 Findings: Left Ventricle: Normal size left ventricle. No LV hypertrophy. Normal global systolic LV function. EF is 66 %. No regional wall motion abnormality. Normal diastolic LV function. Right Ventricle: Normal size right ventricle. Normal RV function. Left Atrium: The left atrium is normal in size. Right Atrium: The right atrium is normal in size. Mitral Valve: The mitral valve is normal in appearance and function. There is no mitral valve regurgitation. Aortic Valve: The aortic valve is normal in appearance and function. The aortic valve is tri-leaflet. Tricuspid Valve: The tricuspid valve appears normal. Trivial tricuspid valve regurgitation. The pulmonary artery pressure is normal. Pulmonic Valve: The pulmonic valve is normal in appearance and function. Aorta: The aorta is normal. Pericardium: No pericardial effusion. (No Signature Object) Patient: MARRY MEZA Study Date: 02/11/2018 Page 2 of 2 08:02 AM [id number]
--- NOTE | 2018-02-11 12:38 | ASMTCMCOM ---
CM Note CM Note Notes: Patient went for right foot incision and drainage with extensive debridement. PT and wound care have been ordered. D/C plan still TBD. CM will follow. Date Signed: 02/11/2018 12:37 PM Electronically Signed By:Ailin Bettencourt LCSW
[2018-02-11] MEDS: ACETAMINOPHEN 325 MG TAB PO PRN ×2 (12:39→18:22)
--- NOTE | 2018-02-11 14:16 | WOCRNPDOC ---
JOSÉ MIGUEL Advanced Assessment Note - Skin Integrity Problem, Advanced Assess Right Foot Dressing Type: Abdominal Pads, Rush Bandage, Gauze, Iodoform Packing, Kerlix Dressing Description: Intact, Shadowed Exudate Amount: Minimal Exudate Color: Red Exudate Characteristic(s): Bloody Integumentary Issue Intervention: Dressing Changed Ivory Wound Tissue: Erythema, Hot, Swollen, Intact Ivory Wound Swelling: Mild Wound Bed Color: Red, Yellow Wound Bed Constitution: Smooth Tissue, Red/[place] - Non Granular Tissue, Tunneling (2 o'clock: 1cm; 8-10 o'clock: 1cm), Tendon, Muscle, Subcutaneous Fat Wound Edges: Attached, Not Attached, Irregular Site Measurement - Head-to-Toe Length X Width X Depth (cm): 5x7x1, spanning dorsal to plantar surface Skin Integrity Problem Comment: Wound unpacked and Dr. Celaya at bedside. Circumferentially, ivory wound tissue dusky appearing, concern expressed for further need for debridement. Wound cleaned with NS and gauze. Tunnels and wound bed packed fully but not tightly with with packing, covered with gauze and an ABD and wrapped in kerlix and an rush. Patient tolerated the procedure well. All questions answered. No wound orders placed as Dr. Celaya to round again tomorrow to change. Wound care will round again on Wednesday.
[2018-02-11] MEDS: CLINDAMYCIN 600 MG/DEXTROSE 50 ML IV SCH ×2 (15:18→22:34)
--- NOTE | 2018-02-11 17:43 | HOSPPROG ---
Hospitalist Progress Note Assessment/Plan: Assessment: 52 yo M p/w acute ft abscess and cellulitis in the setting of neuropathy c/b Afib w/ acute RVR Plan: 1. Foot abscess and cellulitis. Acute, POD#1 from extensive debridement or the 4th/5th digits w/ complete removal of tissue over the 5th digit and requiring re -debridement and 5th digit amputation / by Dr. Celaya -D#2 Doxy/Zosyn -Cx w/ Staph and GBS -appreciate ongoing ID consult -counseled patient that RLE edema likely extension of infxn cellulitis rather than ankle tendon injury 2. Tendinopathy. MRI demonstrating partial tear of the right peroneal tendon, d /w patient -will recommend ongoing outpatient physical therapy as well as orthopedic follow -up 3. Neuropathy. Chronic, unclear etiology, A1c pending 4. Systemic inflammatory response syndrome. Secondary to underlying infection, patient does not overtly meet sepsis criteria, continue monitor white blood cell count and fever curve 5. Atrial fibrillation. Acute RVR o/n, likely provoked by infection, converted back to NSR -monitor on tele -Echo w/ EF 66%, no abnl -hold on any luli blocking agents, likely spurious -hold on cva ppx unless reoccurs Diet. Regular Prophylaxis. High risk patient, avoid SCDs on right lower extremity, hold on pharmacologic prophylaxis given surgery Code. Full Disposition. Anticipated discharge uncertain this time, anticipated length stay will be based on IV antibiotic duration as well as wound reassessment Subjective: Afib RVR o/n, ongoing pain in R lateral foot Objective: Vital Signs Temp Pulse Resp BP Pulse Ox 37.8 C 95 22 H 116/74 92 02/11/18 08:00 02/11/18 08:00 02/11/18 08:00 02/11/18 08:00 02/11/18 13:55 Microbiology 02/10/18 19:15 Gram Stain - Final Foot - Eswab 02/10/18 19:15 Mycobacterial Smear (JAVI) - Final Foot - Eswab Mycobacterial Culture - Final 02/10/18 19:16 Gram Stain - Final Foot - Tissue 02/10/18 19:16 Mycobacterial Smear (JAVI) - Final Foot - Tissue Laboratory Results 02/11/18 05:00 02/11/18 05:00 02/10/18 02/11/18 02/12/18 05:59 05:59 05:59 Intake Total 1875 4140 Output Total 301 300 Balance 1875 3839 -300 PT 14.7 SEC (12.0-15.0) 02/09/18 22:52 INR 1.13 (0.83-1.16) 02/09/18 22:52 - Physical Exam Constitutional: no apparent distress, appears nourished, not in pain, uncomfortable Cardiovascular: regular rate and rhythym, no murmur, rub, or gallop, edema (1+ RLE), other (2+ R dorsalis pedis), No tachycardia Respiratory: no respiratory distress, no rales or rhonchi, clear to auscultation Gastrointestinal: normoactive bowel sounds, soft, non-tender abdomen, distension (mild), No guarding Skin: other (wrapped R foot, no lymphangitic streaking up leg) Neurologic: AAOx3, No sensation intact bilaterally (paresthesia distal RLE toes) , No weakness Psychiatric: interacting appropriately, not anxious, not encephalopathic, thought process linear ICD10 Worksheet Patient Problems: Problems Problem Status Onset Right foot infection Acute
[2018-02-11] MEDS ORDERED: BISACODYL 10 MG SUPP PR PRN (17:45)
[2018-02-11] MEDS ORDERED: MAGNESIUM HYDROXIDE 30 ML UDCUP PO PRN (17:45)
[2018-02-11] MEDS ORDERED: POLYETHYLENE GLYCOL 3350 17 GM PKT PO PRN (17:45)
[2018-02-11] MEDS ORDERED: LACTULOSE 20 GM/30 ML UDCUP PO PRN (17:45)
[2018-02-11] MEDS: NS 1,000 ML IV SCH (19:43)
[2018-02-11] MEDS: SENNOSIDES/DOCUSATE SODIUM TAB PO SCH (21:21)
[2018-02-12] MEDS: PIPERACILLIN/TAZO 3.375 GM/DEX 50 ML IV SCH ×3 (00:05→12:35)
[2018-02-12] MEDS: ACETAMINOPHEN 325 MG TAB PO PRN ×2 (02:35→06:17)
[2018-02-12 06:47] LABS: PLATELET COUNT 174 10^3/uL (150-400)
[2018-02-12] MEDS: CLINDAMYCIN 600 MG/DEXTROSE 50 ML IV SCH ×2 (07:09→13:23)
[2018-02-12] MEDS ORDERED: BUPIVACAINE 0.25% 30 ML SDV ONE (07:18)
[2018-02-12] MEDS ORDERED: LIDOCAINE 2% 5 ML SDV ONE ×2 (07:18→08:09)
[2018-02-12] MEDS ORDERED: ceFAZolin 1 GM/5 ML SYR ONE ×2 (07:30→07:41)
[2018-02-12] MEDS ORDERED: MIDAZOLAM 2 MG/2 ML VIAL IVP ONE (07:43)
[2018-02-12] MEDS ORDERED: MIDAZOLAM 2 MG/2 ML VIAL ONE (07:52)
--- NOTE | 2018-02-12 07:57 | PDANEPAE ---
ANE History of Present Illness right 5th ray amputation ANE Past Medical History - Cardiovascular History Hx Hypertension: No Hx Arrhythmias: Yes Hx Chest Pain: No Hx Coronary Artery / Peripheral Vascular Disease: No Hx CHF / Valvular Disease: No Hx Palpitations: No Cardiovascular History Comment: acute A. fib yesterday, structurally normal heart via echo, converted to NSR with 1 dose amiodarone - Pulmonary History Hx COPD: No Hx Asthma/Reactive Airway Disease: No Hx Recent Upper Respiratory Infection: No Hx Oxygen in Use at Home: No Hx Sleep Apnea: No Sleep Apnea Screening Result - Last Documented: Positive - Endocrine History Hx Diabetes: No Hypothyroid: No Hyperthyroid: No Obesity: no - Renal History Hx Renal Disorders: No - Liver History Hx Hepatic Disorders: No - Neurological & Psychiatric Hx Hx Neurological and Psychiatric Disorders: No - Cancer History Hx Cancer: No - Chronic Pain History Chronic Pain: No ANE Review of Systems Review of Systems: - Exercise capacity Exercise capacity: >=4 METS - Systems Constitutional: Reports: malaise, recent illness Skin: Reports: lesions Neurological: Reports: pre-existing deficit (foot neuropathy) ANE Patient History - Allergies Allergies/Adverse Reactions: No Known Allergies Allergy (Unverified 02/09/18 22:43) - Home Medications Home Medications: Calcium Carb W/Vit D [Calcium Carb W/Vit D 500/200 (*)] 500 mg PO DAILY [Last Taken Unknown] Cyanocobalamin [Vitamin B12 (*)] 1,000 mcg PO DAILY 02/10/18 [Last Taken Unknown ] [place]-3 Fatty Acids [Fish Oil 1000 mg (*)] 2,000 mg PO DAILY 02/10/18 [Last Taken Unknown] Vitamin B Complex [Vitamin B Complex (OTC)] 1 each PO DAILY 02/10/18 [Last Taken Unknown] - NPO status NPO Status: no food or drink >8 hours NPO Since - Liquids (Date): 02/12/18 NPO Since - Liquids (Time): 00:00 NPO Since - Solids (Date): 02/12/18 NPO Since - Solids (Time): 00:00 - Anes Hx Anes Hx: no prior problems - Smoking Hx Smoking Status: Never smoked - Alcohol Use Alcohol Use: None - Family Anes Hx Family Anes Hx: none ANE Labs/Vital Signs - Labs Result Diagrams: 02/12/18 06:30 02/12/18 06:30 - Vital Signs Vital Signs: reviewed preoperatively; see RN documention for details Blood Pressure: 116/67 Heart Rate: 81 Respiratory Rate: 12 O2 Sat (%): 94 Height: 187.96 cm Weight: 100 kg ANE Physical Exam - Airway Neck exam: FROM Mallampati Score: Class 2 - Pulmonary Pulmonary: no respiratory distress, no rales or rhonchi - Cardiovascular Cardiovascular: regular rate and rhythym - ASA Status ASA Status: III ANE Anesthesia Plan Anesthesia Plan: MAC
[2018-02-12] MEDS ORDERED: PROPOFOL/EMULSION 500 MG/50 ML BOTTLE IV ONE ×2 (08:09→08:56)
[2018-02-12] MEDS ORDERED: fentaNYL 100 MCG/2 ML INJ ONE (08:09)
[2018-02-12] MEDS ORDERED: oxyCODONE IR 5 MG TAB PO PRN (10:01)
[2018-02-12] MEDS ORDERED: ONDANSETRON 4 MG/2 ML VIAL IVP PRN (10:01)
[2018-02-12] MEDS ORDERED: fentaNYL 100 MCG/2 ML INJ IVP PRN (10:01)
[2018-02-12] MEDS ORDERED: NALOXONE HCL 0.4 MG/ML INJ IVP PRN (10:01)
[2018-02-12] MEDS ORDERED: ACETAMINOPHEN 500 MG TAB PO PRN (10:01)
--- NOTE | 2018-02-12 10:03 | POSTANESTH ---
Post Anesthetic Evaluation Cardiovascular Status: Normal, Stable Respiratory Status: Normal, Stable Level of Consciousness/Mental Status: Can Participate in Eval Pain Control: Adequate, Prn Tx Ordered Nausea/Vomiting Control: Adequate, Prn Tx Ordered Complications Possibly Related to Anesthesia: None Noted
--- NOTE | 2018-02-12 10:07 | POSTOPPROG ---
Post Op Note Date of Operation: 02/12/18 Surgeon: Manju Celaya Anesthesiologist: Dr. Tyler Ceron Anesthesia: IV Sedation Pre-op Diagnosis: Right foot extensive necrosis with exposed 5th metatarsal ( osteomyelitis) Post-op Diagnosis: Right foot extensive necrosis with exposed 5th metatarsal ( osteomyelitis) Indication: Right foot infection with necrosis Procedure: R foot extensive debridement with 5th ray resection Findings: extensive muscle necrosis, worsened since last debridement 2 days ago Inf/Abcess present in the surg proc area at time of surgery?: Yes Depth: Deep Incisional (Fascial) EBL: Minimal Drains: Other (Iodoform packing gauze) Specimen(s): Wound cultures x 2. Tissue sent for microbiology. 5th toe and 5th metatarsal sent to pathology.
--- NOTE | 2018-02-12 11:29 | GOP ---
[f rep st] OPERATIVE REPORT DATE OF OPERATION: 02/12/2018 SURGEON: Manju Celaya DPM ANESTHESIA: Local with monitored anesthesia care. ANESTHESIOLOGIST: Dr. Ceron. PREOPERATIVE DIAGNOSIS: Right foot extensive soft tissue necrosis with exposed 5th metatarsal and probable osteomyelitis. POSTOPERATIVE DIAGNOSIS: Right foot extensive soft tissue necrosis with exposed 5th metatarsal and probable osteomyelitis. PROCEDURE PERFORMED: Right foot extensive debridement with 5th ray resection including the 5th toe and 5th metatarsal. FINDINGS: Further necrosis which had worsened since the last debridement 2 days ago with further necrosis of the plantar foot muscles. SPECIMENS: Right foot cultures x2 were taken. Tissue sent for microbiology. The 5th toe and 5th metatarsal sent to Pathology. ESTIMATED BLOOD LOSS: Minimal. DESCRIPTION OF PROCEDURE: Under mild sedation, the patient was brought into the operating room, placed on the operating table in supine position. Following IV sedation, local anesthesia was obtained about the right foot using 15 cc of 0.25% Marcaine plain and 5 cc of 2% lidocaine plain. The foot was then scrubbed, prepped, and draped in the usual aseptic manner. A sterile pneumatic ankle tourniquet was placed about the right ankle. The tourniquet was inflated without exsanguination due to the infection. At this point, the wound edges from the previous debridement were debrided to remove any of the brown and black necrotic tissue to the level of healthy bleeding skin. The 5th metatarsal was freed from surrounding tissue and an oscillating bone saw, used to resect the 5th metatarsal, leaving the base intact to prevent biomechanical and gait abnormality when walking in the future. The 5th metatarsal was then sent to Pathology. An ellipse was made around the 5th toe and the 5th toe was also sent to Pathology. The wound was irrigated with copious sterile saline Ancef irrigation. At this point, further examination was performed and an attempt to repair some of the skin with folding it into a flap to decrease the amount of open wound present. The plantar aspect of the foot was further evaluated and the muscle necrosis had increased since his debridement 2 days ago. This was debrided with sharp and blunt dissection to remove any of the brown dark necrotic tissue. The skin on the plantar aspect of the foot was intact. The wound was then irrigated with pulse lavage with Ancef in the irrigation using a 3 L bag of fluid. The instrumentation and gloves were changed. At this point, the proximal incision over the base of the 5th metatarsal was closed with 3-0 Vicryl and 2-0 Prolene. The plantar incision was closed with 2-0 Prolene. Around the area of the previous 5th toe, this was closed also with 2-0 Prolene. The remaining open wound that was then packed with iodoform packing gauze measured 4.3 x 3.5 x 3 cm deep with tunneling. This was all packed with iodoform packing gauze. The tourniquet was deflated. The incision was dressed with Xeroform, 4 x 4 gauze, ABD pad, Erin, Kerlix, Rush wrap. The patient was then transferred to the recovery room. He will be transferred back to the ICU. He will remain nonweightbearing on his foot for now. Wound care will see him tomorrow morning to evaluate for possible wound VAC placement , depending on how the wound looks and as long as there is no further necrosis present. I am concerned about the amount of necrosis that I found today from 2 days ago, when the wound appeared clean after debridement without any further necrosis. He is now at risk for potentially losing his 4th ray as well. INJECTABLES: 15 cc of 0.25% Marcaine plain and 5 cc of 2% lidocaine plain. DRAINS: Iodoform packing gauze was placed. HEMOSTASIS: Pneumatic ankle tourniquet at 250 mmHg for 66 minutes. /[id number]/MODL MTDD
[2018-02-12] MEDS: DOXYCYCLINE INJ 100 MG in NS 250 ML IV SCH (11:30)
[2018-02-12] MEDS: OMEGA-3 FATTY ACIDS 1,000 MG CAP PO SCH (11:39)
[2018-02-12] MEDS: SENNOSIDES/DOCUSATE SODIUM TAB PO SCH (11:39)
[2018-02-12] MEDS: CALCIUM CARB W/VIT D 500 MG TAB PO SCH (11:39)
[2018-02-12] MEDS: CYANO/VITAMIN B12 1000 MCG TAB PO SCH (11:40)
[2018-02-12] MEDS: VITAMIN B COMPLEX 1 EA CAP/TAB PO SCH (11:40)
--- NOTE | 2018-02-12 12:39 | PCMIDPN ---
Assessment/Plan: 1. Necrotizing fasciitis right foot status post right 5th ray amputation: So far, cultures are growing MSSA , alpha hemolytic streptococci, and group B strep. Clinically and radiographically, he has necrotizing fasciitis. Spoke with Dr. Celaya at length today; she is concerned about ongoing myonecrosis. She told me that he will almost certainly need further debridement. Long conversation with patient today. Recommended that he be transferred to [facility] for their expertise. Dr. Celaya does not feel comfortable managing this moving forward. Continue Piperacillin/tazobactam, clindamycin, and doxycycline, although vibrio seems much less likely given clinical scenario , and the fact that the coral exposure was over 10 weeks ago. The patient and his expressed understanding. Also had conversation with hospitalist, who will help arrange transfer. To the medicine/surgery service at [facility]: Please feel free to page me at any time to discuss this patient. My pager number is [phone]. My office number is [phone]. Would also encourage you to have a warm hand off from Dr. Celaya (retort load expediter who performed surgeries) to discuss operative findings this morning, and the patient's clinical course over the past 72 hr. Her pager number is [phone]. Over 35 min was spent with this patient today. Subjective: Patient is status post 5th ray amputation secondary to progressive myonecrosis and extension of infection. Long conversation with Dr. Evans today. She feels that this is beyond her area of expertise surgically, and would prefer General surgery to take over his care. Long conversation with patient today as well. Please see plan as outlined below. Thankfully, his white blood cell count is down today, he is very concerned about his prognosis. Objective: Zosyn 3.375 g IV q.6 hours day 2 Doxycycline 100 mg IV twice daily day 2 Clindamycin 600 mg IV q.8 hours day 1 Vital Signs Temp Pulse Resp BP Pulse Ox 37.4 C 78 20 141/90 H 92 02/12/18 12:06 02/12/18 12:06 02/12/18 12:06 02/12/18 12:06 02/12/18 12:06 Microbiology 02/10/18 19:16 Gram Stain - Final Foot - Tissue 02/10/18 19:16 Mycobacterial Smear (JAVI) - Final Foot - Tissue 02/10/18 19:15 Gram Stain - Final Foot - Eswab 02/10/18 19:15 Mycobacterial Smear (JAVI) - Final Foot - Eswab Mycobacterial Culture - Final Laboratory Results 02/12/18 06:30 02/12/18 06:30 02/11/18 02/12/18 02/13/18 05:59 05:59 05:59 Intake Total 4140 2638 800 Output Total 301 1550 Balance 3839 1088 800 ESR 24 MM/HR (0-20) H 02/09/18 22:52 C-Reactive Protein 186.3 mg/L (<10.0) H 02/09/18 22:52 Foot cultures have grown alpha hemolytic Streptococcus, MSSA, and group B strep - Physical Exam General Appearance: alert, no apparent distress EENT: pharynx normal, No thrush Extremities: other (Right foot wrapped with primary surgical dressing; I did not take this down today.) Skin: No rash Neuro/Psych: oriented x 3 ICD10 Worksheet Patient Problems: Problems Problem Status Onset Right foot infection Acute
[2018-02-12] MEDS ORDERED: IBUPROFEN 200 MG TAB PO PRN (13:10)
[2018-02-12 14:35] VITALS: BP 132/80
== END 2018-02-12 16:38 | disposition short-term general hospital (02) | DRG 464 ==
LOC: F2N 02-10 01:03 → F3N 02-12 10:58
PROVIDERS: ADMIT Family Medicine; ATTEND Family Medicine
PROC: 0JBQ0ZZ Excision of Right Foot Subcutaneous Tissue and Fascia, Open Approach (ICD-10-PCS; 2018-02-10)
PROC: 0Y6M0ZF Detachment at Right Foot, Partial 5th Ray, Open Approach (ICD-10-PCS; principal; 2018-02-12 10:30)
DX: M72.6 Necrotizing fasciitis (principal); L03.115 Cellulitis of right lower limb; I96 Gangrene, not elsewhere classified; M86.171 Other acute osteomyelitis, right ankle and foot; G62.9 Polyneuropathy, unspecified; B95.61 Methicillin susceptible Staphylococcus aureus infection as the cause of diseases classified elsewhere; M77.51 Other enthesopathy of right foot and ankle; I48.91 Unspecified atrial fibrillation
CPT/HCPCS: 83605-PO; 96365; 97116-GP; 97161-GP; A9585; J1885; J2001; J2250; J2370; J2405; J2543; J2704; J2765; J3010; J3370

== ENCOUNTER → 2018-06-30 | Outpatient (CLI) | payer OTHER | LOC: FLAB 14:38 | PROVIDERS: ATTEND Podiatrist Foot & Ankle Surgery | DX: S92.334A Nondisplaced fracture of third metatarsal bone, right foot, initial encounter for closed fracture (principal); S92.344A Nondisplaced fracture of fourth metatarsal bone, right foot, initial encounter for closed fracture; M77.31 Calcaneal spur, right foot ==

== ENCOUNTER → 2018-08-09 | Outpatient (CLI) | payer OTHER | LOC: BMCIMAGING 09:40 | PROVIDERS: ATTEND Podiatrist Foot & Ankle Surgery | DX: S92.344 Nondisplaced fracture of fourth metatarsal bone, right foot (principal) ==

== ENCOUNTER → 2018-09-01 | Outpatient (CLI) | payer OTHER | LOC: BMCIMAGING 14:57 | PROVIDERS: ATTEND Podiatrist Foot & Ankle Surgery | DX: S92.344D Nondisplaced fracture of fourth metatarsal bone, right foot, subsequent encounter for fracture with routine healing (principal); S92.331D Displaced fracture of third metatarsal bone, right foot, subsequent encounter for fracture with routine healing ==

== ENCOUNTER → 2018-10-03 | Outpatient (CLI) | payer OTHER | LOC: BMCIMAGING 08:17 | PROVIDERS: ATTEND Podiatrist Foot & Ankle Surgery | DX: S92.334D Nondisplaced fracture of third metatarsal bone, right foot, subsequent encounter for fracture with routine healing (principal); S92.341D Displaced fracture of fourth metatarsal bone, right foot, subsequent encounter for fracture with routine healing ==

== ENCOUNTER → 2018-10-27 | Outpatient (CLI) | payer OTHER | LOC: BMCLAB 14:43 | PROVIDERS: ATTEND Podiatrist Foot & Ankle Surgery | DX: S92.351D Displaced fracture of fifth metatarsal bone, right foot, subsequent encounter for fracture with routine healing (principal) ==

== ENCOUNTER → 2018-11-22 | Outpatient (CLI) | payer OTHER | LOC: BMCIMAGING 13:17 | PROVIDERS: ATTEND Podiatrist Foot & Ankle Surgery | DX: S92.344D Nondisplaced fracture of fourth metatarsal bone, right foot, subsequent encounter for fracture with routine healing (principal); S92.334D Nondisplaced fracture of third metatarsal bone, right foot, subsequent encounter for fracture with routine healing; M77.31 Calcaneal spur, right foot; M77.32 Calcaneal spur, left foot ==

== ENCOUNTER → 2019-01-03 | Outpatient (CLI) | payer OTHER | LOC: BMCIMAGING 14:47 | PROVIDERS: ATTEND Podiatrist Foot & Ankle Surgery | DX: S92.331D Displaced fracture of third metatarsal bone, right foot, subsequent encounter for fracture with routine healing (principal); S92.341A Displaced fracture of fourth metatarsal bone, right foot, initial encounter for closed fracture ==

== ENCOUNTER → 2019-01-26 | Outpatient (CLI) | payer OTHER | LOC: BMCIMAGING 15:26 ==

== ENCOUNTER → 2019-02-23 | Outpatient (CLI) | payer OTHER | LOC: BMCIMAGING 14:37 ==